=== PATIENT | male | born 2000 | race Caucasian/White ===

== ENCOUNTER 2021-06-13 02:53 | Emergency (ER) | payer SELFPAY ==
[~2021-06-13] VITALS: Ht 172.7 cm; Wt 78.0 kg
[2021-06-13 04:20] VITALS: BP 130/75
== END 2021-06-13 04:34 | disposition home or self-care (01) ==
LOC: ER 02:53
DX: F10.129 Alcohol abuse with intoxication, unspecified (principal); Y90.0 Blood alcohol level of less than 20 mg/100 ml
CPT/HCPCS: 93005; 99283